=== PATIENT | female | born 1995 | race Caucasian/White ===

== ENCOUNTER 2017-10-15 14:00 | Emergency (ER) | payer OTHER ==
[2017-10-15] MEDS ORDERED: predniSONE 20 MG TAB PO ONE (14:26)
[2017-10-15] MEDS ORDERED: FAMOTIDINE 20 MG TAB PO ONE (14:26)
--- NOTE | 2017-10-15 14:31 | EDPHY ---
H & P Stated Complaint: STUNG BY BEE BACK OF HEAD .SCATTERED HIVES /REDNESS/ LIGHTHEADED - Personal History LMP (Females 10-55): Extended Cycle BCP/Inj Current Tetanus Diphtheria and Acellular Pertussis (TDAP): Yes Tetanus Vaccine Date: 2014 - Medical/Surgical History Hx Asthma: No Hx Chronic Respiratory Disease: No Hx Diabetes: No Hx Cardiac Disease: No Hx Renal Disease: No Hx Cirrhosis: No Hx Alcoholism: No Hx HIV/AIDS: No Hx Splenectomy or Spleen Trauma: No Other PMH: Migraines with aura-vision, fractures wrist and collar bone. Marijuana use. ADHD, insomnia. - Social History Smoking Status: Current some day smoker Time Seen by Provider: 10/15/17 14:16 HPI/ROS: CHIEF COMPLAINT: Itching post bee sting HISTORY OF PRESENT ILLNESS: 22-year-old female with no prior history of anaphylaxis or hospitalization for bee stings, was stung on her scalp approximately or prior to presentation. She is complaining of diffuse itching and hives. Denies respiratory or GI complaints. She consumed 25 mg oral Benadryl and self transported to the ER. She denies: Dysphagia, odynophagia, tonsillar or glossal enlargement, chest pain, dyspnea, wheezing, abdominal pain , nausea, vomiting REVIEW OF SYSTEMS: Aside from elements discussed in the HPI, a comprehensive 10 point review of systems was reviewed and is negative.] PAST MEDICAL & SURGICAL HISTORY: No pertinent medical or surgical history SOCIAL HISTORY:Nonsmoker PHYSICAL EXAM (Prior to examination, patient consented to physical exam, hands were washed and my usual and customary physical exam procedures followed) 1) GENERAL: Well-developed, well-nourished, alert and oriented. Appears to be in no acute distress. 2) HEAD: Normocephalic, atraumatic 3) HEENT: Pupils equal, round, reactive to light bilaterally. Sclera anicteric. Nasopharynx, oropharynx, clear, no lesions. No tonsillar glossal enlargement. Ears bilaterally with normal tympanic membranes. 4) NECK: Full range of motion, no meningeal signs. 5) LUNGS: Clear auscultation bilaterally, no wheezes, no rhonchi, no retractions. 6) HEART: Regular rate and rhythm, no murmur, no heave, no gallop. 7) ABDOMEN: No guarding, no rebound, no focal tenderness, negative McBurney's, negative Hannon's, negative Rovsing's, negative peritoneal sign, 8) MUSCULOSKELETAL: Moving all extremities, no focal areas of tenderness, no obvious trauma. No peripheral edema or discoloration. 9) BACK: No CVA tenderness, no midline vertebral tenderness, no fluctuance, no step-off, no obvious trauma, no visual or palpable abnormality. 10) SKIN: Mild diffuse urticaria 11) Psychiatric: Patient is oriented X 3, there is no agitation. DIFFERENTIAL DIAGNOSIS: In no particular order including but not limited to anaphylaxis, localized bee sting reaction, urticaria (Dyllan Angel) Constitutional: Initial Vital Signs Temperature (C) 36.8 C 10/15/17 14:13 Heart Rate 70 10/15/17 14:13 Respiratory Rate 16 10/15/17 14:13 Blood Pressure 105/61 10/15/17 14:13 O2 Sat (%) 95 10/15/17 14:13 O2 Delivery Mode Room Air Allergies/Adverse Reactions: shellfish derived Allergy (Severe, Verified 10/15/17 14:12) Hives Home Medications: Medication Instructions Recorded Adderall 20 mg (RX) 08/19/15 EPINEPHrine [Epipen 0.3 MG] 0.3 mg IM ONCE #2 syr 10/15/17 Microgestin 21 1.5-30 Tab 10/15/17 Spironolactone 10/15/17 predniSONE [Prednisone] 60 mg PO DAILY 3 Days tablet 10/15/17 Medical Decision Making ED Course/Re-evaluation: 2:29 p.m.: At this time I do not think that the benefits of epinephrine outweigh the risks. She has already taken pre-hospital Benadryl. Will administer Pepcid, prednisone and observe the patient for a period of time. 3:35 p.m.: Re-evaluation, sleeping, easily woken. Lungs clear bilaterally. Urticaria resolved. Will plan on discharge with EpiPen prescription and prednisone. Usual and customary discharge precautions and instructions provided. Care of patient under supervision of secondary supervising physician Dr Pimentel . (Dyllan Angel) The patient was evaluated and managed by the physician nutritional assistant. I have reviewed this chart and I agree with the findings and plan of care as documented , as indicated by my signature. I am the secondary supervising physician. ( Amy Pimentel) - Data Points Medications Given: Discontinued Medications Famotidine (Pepcid) 40 mg PO EDNOW ONE Stop: 10/15/17 14:27 Last Admin: 10/15/17 14:37 Dose: 40 mg Prednisone (Prednisone) 60 mg PO EDNOW ONE Stop: 10/15/17 14:27 Last Admin: 10/15/17 14:36 Dose: 60 mg Departure - Departure Disposition: Home, Routine, Self-Care Clinical Impression: Bee sting allergy Condition: Good Instructions: Insect Bite or Sting (ED) Additional Instructions: Return to the ER if you develop shortness of breath, difficulty swallowing, difficulty breathing, wheezing, or any other symptoms that concern you Referrals: Nancy Vallejo MD [[facility] Primary Care Provider] - As per Instructions Prescriptions: EPINEPHrine [Epipen 0.3 MG] 0.3 mg IM ONCE #2 syr predniSONE [Prednisone] 60 mg PO DAILY 3 Days tablet
[2017-10-15 15:48] VITALS: BP 109/60
== END 2017-10-15 15:46 | disposition home or self-care (01) ==
DX: T63.441A Toxic effect of venom of bees, accidental (unintentional), initial encounter (principal); F17.200 Nicotine dependence, unspecified, uncomplicated
CPT/HCPCS: J7512